=== PATIENT | female | born 1965 | race Two or more races ===

== ENCOUNTER 2020-10-24 20:14 | Emergency (ER) | payer OTHER ==
[~2020-10-24] VITALS: Ht 165.1 cm; Wt 86.0 kg
[2020-10-24 22:12] LABS: BASOPHILS % 0.3 % (0.0-2.0); EOSINOPHILS % 0.8 % (0.0-5.0); HEMATOCRIT. 34.2 % (36.0-48.0); HEMOGLOBIN. 11.4 g/dL (12.0-16.0); LYMPHOCYTES % 35.8 % (20.0-50.0); MEAN CORPUSCULAR HEMOGLOBIN 28.4 pg (28.0-32.0); MEAN CORPUSCULAR VOLUME 85.3 fL (81.0-99.0); MEAN PLATELET VOLUME 8.6 fl (7.4-10.4); MONOCYTES % 5.4 % (2.0-8.0); NEUTROPHILS % 57.7 % (40.0-76.0); PLATELET 224 x1000/uL (130-400); RED BLOOD CELL COUNT 4.02 mill/uL (4.2-5.4); RED CELL DISTRIBUTION WIDTH 14.6 % (11.6-14.6)
[2020-10-24 22:19] LABS: CHLORIDE 107 mEq/L (98-107)
[2020-10-24] MEDS ORDERED: HYDROCODONE/ACETAMINOPHEN 5/325MG TABLET PO ONE (23:30)
[2020-10-24 23:51] VITALS: BP 155/86
[2020-10-25] MEDS ORDERED: IOHEXOL-300 100 ML BOTTLE ONE (00:10)
== END 2020-10-25 | disposition home or self-care (01) ==
LOC: ER 20:46
DX: M79.605 Pain in left leg (principal); M79.89 Other specified soft tissue disorders
CPT/HCPCS: 36415; 71045; 73560; 73701; 80053; 83880; 84484; 85025; 93970; 99285; Q9967

== ENCOUNTER 2023-11-02 15:41 | Emergency (ER) | payer MEDICAID, OTHER ==
[~2023-11-02] VITALS: Ht 167.6 cm; Wt 91.0 kg
[2023-11-02] MEDS ORDERED: PROPOFOL 200MG/20ML VIAL IV ONE (18:00)
[2023-11-02] MEDS ORDERED: FENTANYL CITRATE/PF 50MCG/ML 2ML VIAL IV ONE (18:00)
[2023-11-02] MEDS: FENTANYL CITRATE/PF 50MCG/ML 2ML VIAL IV NR (22:15)
[2023-11-02] MEDS: PROPOFOL 200MG/20ML VIAL IV NR (22:15)
[2023-11-02 22:38] VITALS: TEMP 98.5; O2SAT 99
[2023-11-03 06:00] VITALS: BP 135/75; PULSE 65; RESP 16
== END 2023-11-03 08:04 | disposition home or self-care (01) ==
LOC: ER 15:41
DX: S43.005A Unspecified dislocation of left shoulder joint, initial encounter (principal); W18.39XA Other fall on same level, initial encounter; Y93.89 Activity, other specified; Y92.89 Other specified places as the place of occurrence of the external cause; Y99.8 Other external cause status
CPT/HCPCS: 73030; 23650; 96374; 99152; 99285; J3010; J2704; Z7610 ×2; L3670